=== PATIENT | male | born 1965 | race Caucasian/White ===

== ENCOUNTER 2016-08-31 06:08 | Day surgery (SDC) | payer OTHER ==
[~2016-08-31] VITALS: Ht 188 cm; Wt 88.1 kg
[~2016-08-31 06:08] MED LIST: ASPIRIN325 MG PO; ATORVASTATIN CA40 MG PO; CYCLOBENZAPRINE5 MG PO; MYLICON EQUIVAL80 MG PO; WARFARIN SODIUM5 MG PO
--- NOTE | 2016-08-31 08:05 | Provider's Discharge Care Plan ---
Problem, Goal, Plan Problem List 1. S/P colonoscopy with polypectomy Goals: Screening, Therapeutic intervention Instructions: Follow up as needed, Take meds as directed
--- NOTE | 2016-08-31 08:05 | Provider's Discharge Care Plan ---
Problem, Goal, Plan Problem List 1. S/P colonoscopy with polypectomy Goals: Screening, Therapeutic intervention Instructions: Follow up as needed, Take meds as directed
--- NOTE | 2016-08-31 08:51 | OPERATIVE REPORT ---
DATE OF SURGERY: 08/31/2016 SURGEON: Kyra Carbone III, MD MANAGER DRUG SAFETY: None. PREOPERATIVE DIAGNOSIS: 1. Bright red blood per rectum POSTOPERATIVE DIAGNOSIS: 1. Sigmoid polyp PROCEDURE PERFORMED: 1. Colonoscopy with electrocautery snare polypectomy ANESTHESIA: TIVA. INDICATIONS: A 50-year-old male with intermittent bouts of bright red blood per rectum for a year, over the last 6 months has become more common. SURGICAL FINDINGS: Normal-appearing cecum, ascending, transverse, and descending colon. The patient was noted to have a pedunculated polyp in sigmoid. The rectal vault appeared grossly normal. SURGICAL TECHNIQUE: The patient was brought to the operating room and placed in the left lateral decubitus position, where he was administered TIVA and monitored closely by anesthesia. After proper anesthesia had taken effect, a digital rectal examination revealed no masses or stenosis. This was followed by the passage of a fiberoptic video flexible Olympus colonoscope, which, without difficulty, negotiated to the cecum. The cecum was identified by anatomical landmarks and anterior abdominal wall ballottement. On withdrawing the scope, the aforementioned findings noted. The polyp in question was removed and retrieved using electrocautery snare. The patient tolerated the procedure well. The scope was withdrawn into the rectal vault. No other pathology identified. The scope was completely withdrawn. The patient tolerated the procedure well and was transferred to the recovery room in stable condition. There were no intraoperative or anesthetic complications.
[2016-08-31 09:25] VITALS: BP 144/90
== END 2016-08-31 10:15 | disposition home or self-care (01) ==
LOC: SCU SRH 06:08 → OR SRH 06:08
PROVIDERS: Specialist
PROC: 0DBN8ZX Excision of Sigmoid Colon, Via Natural or Artificial Opening Endoscopic, Diagnostic (ICD-10-PCS; principal; 2016-08-31 07:30)
DX: D12.5 Benign neoplasm of sigmoid colon (principal); Z79.01 Long term (current) use of anticoagulants; I69.351 Hemiplegia and hemiparesis following cerebral infarction affecting right dominant side
CPT/HCPCS: 29229; 29240; 50004; 60001; 82900; 83526; 90074; 94060

== ENCOUNTER 2016-09-01 10:29 | Observation (INO) | payer OTHER ==
[~2016-09-01] VITALS: Ht 188 cm; Wt 85.7 kg
--- NOTE | 2016-09-01 13:28 | ED NURSING NOTES ---
Clinical Report - Nurses [facility] [place] [address] 09/01/2016 10:30 Patient: LUIS CRESPO TRIAGE Triage time 10:37 Sep 01 2016. Acuity: LEVEL 2. Chief Complaint: RECTAL BLEEDING (pt had colonoscopy yesterday with a polyp removed by Dr Carbone. pt reports rectal bleeding prior to leaving hospital, since that time pt reports "explosive, gaseous and bright red stool"). Alert. ( pt denies pain however reports "kind of bloaty" 11/14). --10:52 Kendal Hahn R.N. 10:37 09/01/16. BP: 122/87. HR: 119. RR: 21. O2 saturation: 100%. Temp: 97.8 F. Pain level now 11/14. --10:52 Kendal Hahn R.N. ( pts level of acuity during triage inc to 2). --11:15 Kendal Hahn R.N. Weight: 88.4 kg stated. Height/Length: 74 inches Per Patient. BMI: 25. --11:01 Kendal Hahn R.N. Medications Aspirin Oral (Tablet 325 mg) 1 tablet, at night. --10:43 Kendal Hahn R.N. Coumadin Oral (Tablet 5 mg) 1 tablet, daily (last dose 08/29/2016 held for procedure). --10:43 Kendal Hahn R.N. Lipitor Oral (Tablet 80 mg) 1 tablet, daily. --10:44 Kendal Hahn R.N. Simethicone Oral. --10:44 Kendal Hahn R.N. Cyclobenzaprine HCl Oral (Tablet 10 mg) 1/2 tablet, as needed. --10:45 Kendal Hahn R.N. Probiotic Oral. --10:46 Page-Kuchan, Karyol, R.N. Allergies None. --10:42 PageKendal Pollock R.N. History Arrived by private vehicle. Historian: patient. ( pt sob, reports tenderness diffuse with inc pain to right upper quad, pt has been having minimal rectal bleeding "off and on for a while"). He has had nausea and abdominal pain. He has had diarrhea. It has been blood-tinged and has been associated with cramps. PAST MEDICAL HX: Immunizations: up-to-date. SOCIAL HX: Never smoker. Alcohol use; consumes five liquor daily. Last drink was 24 to 48 hours ago. History of heavy drug use: marijuana. ABUSE ASSESSMENT: No report of abuse. SELF HARM ASSESSMENT: A self harm assessment was performed. The patient answered "no" to the question "Have you recently felt down, depressed, or hopeless?", "Have you noticed less interest or pleasure in doing things?", "Do you have thoughts of harming or killing yourself?", "Are you here because you tried to hurt yourself?", "Have you ever tried to hurt yourself before today?", "Have you recently had thoughts about harming or killing others?" and "Do you have any dangerous items in your possession?". FALL RISK ASSESSMENT: Fall risk assessment completed. No fall risk identified. FUNCTIONAL ASSESSMENT: Functional assessment: no impairments noted. LEARNING NEEDS ASSESSMENT: The learning needs assessment revealed no barriers. SKIN INTEGRITY ASSESSMENT: Skin integrity risk assessment completed. No skin integrity risk identified. --10:52 Page-Kendal Viera R.N. PROBLEMS: Hepatitis. Atrial Septal Defect. Hyperlipidemia. CVA - Cerebrovascular Accident. --10:49 Page-Kendal Viera R.N. ADDITIONAL SURGERIES: Facial surger. --10:49 PageKendal Pollock R.N. Interventions ID and allergy band on patient. To treatment room. --10:52 PageKendal Pollock R.N. PHYSICAL ASSESSMENT ( oxygen placed on pt, pt while transferring to [facility] was tachypneic, rate in low 30's, while laying with oxygen rate drops to low 20's, with longer sentences being provided for history). GENERAL / NEURO / PSYCH: Alert. Oriented X 4. He is awake and alert and appears ill, uncomfortable and in pain. He is pale and dehydrated and is oriented and cooperative. He has good eye contact and an unsteady gait, appears cheerful, has had a recent weight gain and appearance is consistent with stated age. He is well dressed. HEENT: Mucous membranes are dry and pale. RESPIRATORY: Mild respiratory distress (while undressing and transferring to [facility]). CVS: Cardiac rhythm: (SR 96 at rest, 110's with exertion). Capillary refill is greater than 2 seconds. GI / : The patient has had nausea. He has diarrhea (pt requires wearing attends - describes as "red, I don't think i have pooped it seems just blood"). This has occurred numerous times. It has been bloody and has been associated with cramps. Abdominal tenderness. Abnormal bowel sounds present in all quadrants (hypoactive, describes as ""very regular and some clots in it"). Blood present in the stool. SKIN: Skin is pale. Skin is cool. Poor skin turgor. --11:00 Kendal Hahn R.N. ( pt reports he may feel the need to have a bm, bsc placed in pts room, pt asked to use call light when he is ready to get up). GENERAL / NEURO / PSYCH: Alert. Oriented X 4. Appears in no acute distress. RESPIRATORY: Respirations not labored. CVS: Cardiac rhythm: (SR). SKIN: Skin is dry. --12:37 Kendal Hahn R.N. NURSING PROGRESS NOTES 10:58 09/01/2016 Site #1 started via IV in the right antecubital space with an 20g angiocath; one attempt. Blood drawn: rainbow set. Labeled in the presence of the patient and sent to the lab. Saline lock flushed with 10 mL saline. --11:04 Kendal Hahn R.N. Cardiac rhythm: (SR 90's at rest). Oxygen administered by nasal cannula at 2 liters. lunchroom monitor, pulse oximeter and NIBP monitor placed on patient; monitor alarms on. Blood samples drawn. Bedside hemoglobin and hematocrit: ordered; performed by nurse. Patient gowned. SKIN: Skin is pale. Skin is dry. Skin is markedly cool. Two patient identifiers checked. Call light placed in reach of patient. Side rails up x 2. Bed placed in lowest position. Brakes of bed on. Patient ready for evaluation- chart flagged. Patient waiting for evaluation and lab results. ( pt tearful, "i'm scared" pt provided reassurance that he is in good hands and we will take excellent care of him.). --11:06 Kendal Hahn R.N. 10:58 09/01/2016 Site #2 started via IV in the left wrist with an 20g angiocath; one attempt. Blood drawn. Labeled in the presence of the patient and sent to the lab. Saline lock flushed with 10 mL saline. --11:08 Kendal Hahn R.N. 11:02 09/01/2016 Started bag #1 1000 mL IV Fluids IV NS (Saline); at 1000 mL/hr via site #1. Allergies verified and confirmed 5 rights. IV patency established. IV site checked: no pain, redness, or swelling. IV flushed thoroughly pre- and post-medication administration. --11:07 Kendal Hahn R.N. 11:24 09/01/16. EKG time: (11:22). EKG was performed by a tech and shown to the ED physician. --11:24 Savana Franco 11:43 09/01/16. BP: 121/88. HR: 90. RR: 19. O2 saturation: 100% on nasal cannula at 2 liters/minute. --11:44 Kendal Hahn R.N. 11:43 09/01/2016 IV Fluids IV NS Response: no adverse reaction symptoms have improved the patient feels better. --11:53 Kendal Hahn R.N. 13:02 09/01/16. ED physician notified about patient's status. Notified about symptom (13:06 Sep 01 2016). ( pt assisted back to [facility] after up to bsc, pt in [facility] found some red clots and bloody soaked paper, pt reports "it's actually quite a bit less than it has been" pt became cool, clammy/diaphoretic, HR up to 134/ST, RR inc to upper 20's. notified with VO for 2nd liter of NS.). --13:19 Kendal Hahn R.N. <<STRICKEN ENTRY-- 13:15 09/01/2016 Started bag #1 1000 mL IV Fluids IV NS (Saline); at 750 mL/hr via site #2. Allergies verified and confirmed 5 rights. IV patency established. IV site checked: no pain, redness, or swelling. IV flushed thoroughly pre- and post-medication administration. --13:15 Kendal Hahn R.N. --END STRIKE>> Correction. bag #2 --13:19 Kendal Hahn R.N. 13:15 09/01/2016 Started bag #2 1000 IV Fluids IV NS (Saline); at 750 mL/hr via site #2. Allergies verified and confirmed 5 rights. IV patency established. IV site checked: no pain, redness, or swelling. IV flushed thoroughly pre- and post-medication administration. --13:19 Kendal Hahn R.N. Patient waiting for admit bed. ( pt aware he is an admit to hospital. HOB lowered and warm blankets provided for comfort. pt notified s/o he is being admitted. no c/o voiced, belongings bagged/tagged for admission.). --13:47 Kendal Hahn R.N. Reassurance given to the patient. Reassessment after fluids administered. He reports no complaints, he is calm and resting quietly and he has had no adverse reaction. Overall patient status is the same- he states feels better. Call light placed in reach. Side rails up x 2. Bed placed in lowest position. Brakes of bed on. --13:49 Kendal Hahn R.N. Oxygen administered by nasal cannula at 2 liters (remains in place). Monitoring of patient in place. Reassessment after fluids administered. He reports no complaints, he is calm and resting quietly and he has had no adverse reaction. Overall patient status (pt overall reports improvement in symptoms as long as he is laying down. with movement pt becomes symptomatic of sob, diaphoresis, inc HR). Call light placed in reach. Side rails up x 2. Bed placed in lowest position. Brakes of bed on. Patient waiting for admit bed. ( waiting assigned room for admission- pt aware, pt in poc, denies pain, "as long as I'm still I feel pretty good" pt in SR on monitor, O2 remains in place at 2 L NC. ivf complete ,). --14:44 Kendal Hahn R.N. 11:53 09/01/2016 IV Fluids IV NS Discontinued: infused. Total amount infused: 1000 mL. IV patency established. IV site checked: no pain, redness, or swelling. IV flushed thoroughly. --16:07 Kendal Hahn R.N. 13:54 09/01/2016 IV Fluids IV NS Discontinued: bag #2 infused. Total amount infused: 1000 mL. IV patency established. IV site checked: no pain, redness, or swelling. IV flushed thoroughly. --16:08 Kendal Hahn R.N. DISPOSITION / DISCHARGE Cardiac rhythm: (SR). Condition at departure: improved and stable. The goals identified in the patient's plan of care were met. The patient was discharged by the physician. Admitted to Acute Care (15:45 Sep 01 2016). Transported via stretcher by [employer]. Report was given to a nurse via a phone call. Report included patient's care, treatment, medications, reviewed medication reconcilliation, and condition (including any recent changes or anticipated changes). All questions were answered. Care was transferred. (report called to Awa GUADALUPE). Bed obtained and ready (1440 Sep 01 2016). Patient's personal items include: shirt, pants, coat, socks, shoes and cell phone; items were placed in belongings bag, given to the patient and transported with the patient. --15:51 Kendal Hahn R.N. 15:45 09/01/16. BP: 106/78. HR: 85. RR: 17. O2 saturation: 100%. Temp: 98.1 F. Pain level now: 0/10. --15:51 Kendal Hahn R.N. ( pt to 211 with transport). --16:05 Kendal Hahn R.N. Locked/Released at 09/01/2016 16:09 by Kendal Hahn R.N.
--- NOTE | 2016-09-01 13:28 | ED CLINICAL REPORT ---
Clinical Report - Physicians/Mid Levels [facility] [address] [place] [address] 09/01/2016 10:30 Patient: LUIS CRESPO Time Seen: 10:47; initial patient contact. Arrived- By private vehicle. Historian- patient. HISTORY OF PRESENT ILLNESS Chief Complaint: RECTAL BLEEDING. Since colonoscopy yesterday. This started yesterday, has been moderate and is still present. The patient has had rectal bleeding and mild, intermittent abdominal pain but not had rectal pain or hard stools. No constipation, nausea, vomiting or diarrhea. Similar symptoms previously: None. Recent medical care: The patient was seen recently in a clinic. ( for colonoscopy yesterday). REVIEW OF SYSTEMS The patient has had weakness, and he has had dizziness. No fainting episodes, fever, difficulty breathing or chest pain. All systems otherwise negative, except as recorded above. PAST HISTORY Hepatitis. Atrial Septal Defect. Hyperlipidemia. CVA - Cerebrovascular Accident. ADDITIONAL SURGERIES: Facial surger. SOCIAL HISTORY Never smoker. Regular alcohol use. History of drug use: marijuana. ADDITIONAL NOTES The nursing notes have been reviewed. PHYSICAL EXAM Vital Signs: 09/01/2016 10:37 BP: 122/87. HR: 119. RR: 21. O2 saturation: 100%. Temp: 97.8 F. Have been reviewed. Blood pressure normal. Tachycardic. Respiratory rate normal. Temperature normal. Oxygen saturation normal. Appearance: Alert. Oriented X3. No acute distress. Eyes: Eyes normal inspection. No pale conjunctivae. ENT: Pharynx normal. CVS: Tachycardia. Heart sounds normal. Rhythm normal. Respiratory: No respiratory distress. Breath sounds normal. Abdomen: Soft and nontender. Bowel sounds normal. No mass. Rectal: Strongly heme-positive stool; blood streaks present in the stool; hemoccult ethanol quality leader check passed. (POC test reference range: negative). Brown, bloody stool. No hemorrhoids. No digital exam tenderness. Skin: Normal skin color. No rash. Extremities: No lower extremity edema. Neuro: Oriented X 3. LABS, X-RAYS, AND EKG EKG: EKG time: (1122). No acute process. No acute ischemia. Normal sinus rhythm. Rate: 79. Normal P waves. Normal HOLLI. Normal QRS complex. Normal axis. Normal ST and T waves, QT and QTc. Prior EKG unavailable. The study has been interpreted contemporaneously by me. The study has been independently viewed by me. The EKG appears to be a good tracing. I do not agree with or confirm the computer reading of the EKG. Interpretation time: 1124. Laboratory Tests: CBC w Diff: (KENDAL: 09/01/2016 10:40) ( [facility] [place] 09/01/2016 11:35) Final results Test Result Flag Units (Reference) WHITE BLOOD COUNT 8.9 K/uL (4.5-11.5) RED BLOOD COUNT 4.12 L M/uL (4.50-5.90) HEMOGLOBIN 13.2 L gm/dL (13.5-17.5) HEMATOCRIT 39.7 L % (41.0-53.0) MEAN CELL VOLUME 96 fL (80-100) MEAN CORPUSCULAR HGB 32 pg (26-34) MEAN CORPUSCULAR HGB CONC 33 g/dL (31-37) RED CELL DISTRIBUTION WIDTH 14.2 % (11.6-14.8) PLATELET COUNT 305 K/uL (150-400) NEUTROPHIL % 78.9 H % (50-75) LYMPH % 15.8 L % (25-40) MONO % 4.5 % (3-14) EOSINOPHIL % 0.5 % (0-4) BASOPHIL % 0.3 % (0-2) PT with INR: (KENDAL: 09/01/2016 10:40) ( [facility] [place] 09/01/2016 11:35) Final results Test Result Flag Units (Reference) INR 1.2 (0.8-1.2) Low Intensity Therapy: INR 1.5-2.0 PT range 18.5-23.1Mod.Intensity Therapy: INR 2.0-3.0 PT range 23.1-31.5High Intensity Therapy: INR 2.5-3.5 PT range 27.4-35.5High Intensity Therapy 2: INR 3.0-4.0 PT range 31.5-39.3 APTT 32 SECONDS (24-34) CPK: (KENDAL: 09/01/2016 10:40) ( [facility] [place] 09/01/2016 12:55) Final results Test Result Flag Units (Reference) CPK 79 U/L (24-260) TROPONIN I <0.05 ng/mL (0.00-1.5) TROPONIN REFERENCE RANGE:<0.1 NEGATIVE0.1-1.5 INDETERMINANT>1.5 POSITIVE CMP: (KENDAL: 09/01/2016 10:40) ( [facility] [place] 09/01/2016 11:36) Final results Test Result Flag Units (Reference) GLUCOSE 201 H mg/dL (70-110) BUN 7 mg/dL (7-18) CREATININE 0.9 mg/dL (0.6-1.3) Estimated GFR >60 mL/min Estimated GFR- >60 mL/min Note: Persistent reduction over 3 months in eGFR<60 mL/min/1.73 m2 defines CKD. Patients with eGFR values>=60 mL/min/1.73 m2 may also have CKD if evidence ofpersistent proteinuria. Additional information may be foundat www.kidney.org. SODIUM 139 mmol/L (136-145) POTASSIUM 3.8 mmol/L (3.5-5.1) CHLORIDE 103 mmol/L (98-107) CARBON DIOXIDE 20 L mmol/L (21-32) CALCIUM 8.5 mg/dL (8.5-10.1) TOTAL PROTEIN 7.2 g/dL (6.4-8.2) ALBUMIN 4.3 g/dL (3.3-5.0) BILIRUBIN, TOTAL 1.2 H mg/dL (0.0-1.0) ALKALINE PHOSPHATASE 57 U/L (46-116) AST (SGOT) 45 H U/L (15-37) ALT (SGPT) 61 U/L (12-78) Type & Screen: (KENDAL: 09/01/2016 10:40) ( [facility] [place] 09/01/2016 12:31) Final results Test Result Flag Units (Reference) PATIENT BLOOD TYPE O Positive ANTIBODY SCREEN NEGATIVE . PROGRESS AND PROCEDURES Discussed case with patient's primary care provider, (call returned 13:23 Dr. Carbone. Admit to hospitalist for observation, if he bleeds again will perform colonoscopy). Discussed case with hospitalist, (call returned 13:25 Dr. Terrell will admit). Health care provider will see patient in hospital. Disposition: Observation in Acute Care. Condition: good. CLINICAL IMPRESSION Minor GI bleed with hematochezia. INSTRUCTIONS Follow-up: Screening today revealed the patient's blood pressure to be in the pre-hypertensive range. The patient was admitted and blood pressure will be managed during the admission. (Electronically signed by Carlos Silva Dr. 09/01/2016 13:46)
--- NOTE | 2016-09-01 13:28 | ED CLINICAL REPORT ---
Clinical Report - Physicians/Mid Levels [facility] [address] [place] [address] 09/01/2016 10:30 Patient: LUIS CRESPO Time Seen: 10:47; initial patient contact. Arrived- By private vehicle. Historian- patient. HISTORY OF PRESENT ILLNESS Chief Complaint: RECTAL BLEEDING. Since colonoscopy yesterday. This started yesterday, has been moderate and is still present. The patient has had rectal bleeding and mild, intermittent abdominal pain but not had rectal pain or hard stools. No constipation, nausea, vomiting or diarrhea. Similar symptoms previously: None. Recent medical care: The patient was seen recently in a clinic. ( for colonoscopy yesterday). REVIEW OF SYSTEMS The patient has had weakness, and he has had dizziness. No fainting episodes, fever, difficulty breathing or chest pain. All systems otherwise negative, except as recorded above. PAST HISTORY Hepatitis. Atrial Septal Defect. Hyperlipidemia. CVA - Cerebrovascular Accident. ADDITIONAL SURGERIES: Facial surger. SOCIAL HISTORY Never smoker. Regular alcohol use. History of drug use: marijuana. ADDITIONAL NOTES The nursing notes have been reviewed. PHYSICAL EXAM Vital Signs: 09/01/2016 10:37 BP: 122/87. HR: 119. RR: 21. O2 saturation: 100%. Temp: 97.8 F. Have been reviewed. Blood pressure normal. Tachycardic. Respiratory rate normal. Temperature normal. Oxygen saturation normal. Appearance: Alert. Oriented X3. No acute distress. Eyes: Eyes normal inspection. No pale conjunctivae. ENT: Pharynx normal. CVS: Tachycardia. Heart sounds normal. Rhythm normal. Respiratory: No respiratory distress. Breath sounds normal. Abdomen: Soft and nontender. Bowel sounds normal. No mass. Rectal: Strongly heme-positive stool; blood streaks present in the stool; hemoccult vice president quality check passed. (POC test reference range: negative). Brown, bloody stool. No hemorrhoids. No digital exam tenderness. Skin: Normal skin color. No rash. Extremities: No lower extremity edema. Neuro: Oriented X 3. LABS, X-RAYS, AND EKG EKG: EKG time: (1122). No acute process. No acute ischemia. Normal sinus rhythm. Rate: 79. Normal P waves. Normal HOLLI. Normal QRS complex. Normal axis. Normal ST and T waves, QT and QTc. Prior EKG unavailable. The study has been interpreted contemporaneously by me. The study has been independently viewed by me. The EKG appears to be a good tracing. I do not agree with or confirm the computer reading of the EKG. Interpretation time: 1124. Laboratory Tests: CBC w Diff: (KENDAL: 09/01/2016 10:40) ( [facility] [place]/01[facility] 11:35) Final results Test Result Flag Units (Reference) WHITE BLOOD COUNT 8.9 K/uL (4.5-11.5) RED BLOOD COUNT 4.12 L M/uL (4.50-5.90) HEMOGLOBIN 13.2 L gm/dL (13.5-17.5) HEMATOCRIT 39.7 L % (41.0-53.0) MEAN CELL VOLUME 96 fL (80-100) MEAN CORPUSCULAR HGB 32 pg (26-34) MEAN CORPUSCULAR HGB CONC 33 g/dL (31-37) RED CELL DISTRIBUTION WIDTH 14.2 % (11.6-14.8) PLATELET COUNT 305 K/uL (150-400) NEUTROPHIL % 78.9 H % (50-75) LYMPH % 15.8 L % (25-40) MONO % 4.5 % (3-14) EOSINOPHIL % 0.5 % (0-4) BASOPHIL % 0.3 % (0-2) PT with INR: (KENDAL: 09/01/2016 10:40) ( [facility] [place] 11:35) Final results Test Result Flag Units (Reference) INR 1.2 (0.8-1.2) Low Intensity Therapy: INR 1.5-2.0 PT range 18.5-23.1Mod.Intensity Therapy: INR 2.0-3.0 PT range 23.1-31.5High Intensity Therapy: INR 2.5-3.5 PT range 27.4-35.5High Intensity Therapy 2: INR 3.0-4.0 PT range 31.5-39.3 APTT 32 SECONDS (24-34) CPK: (KENDAL: 09/01/2016 10:40) ( [facility] [place] 09/01/2016 12:55) Final results Test Result Flag Units (Reference) CPK 79 U/L (24-260) TROPONIN I <0.05 ng/mL (0.00-1.5) TROPONIN REFERENCE RANGE:<0.1 NEGATIVE0.1-1.5 INDETERMINANT>1.5 POSITIVE CMP: (KENDAL: 09/01/2016 10:40) ( [facility] [place] 09/01[facility]2016 11:36) Final results Test Result Flag Units (Reference) GLUCOSE 201 H mg/dL (70-110) BUN 7 mg/dL (7-18) CREATININE 0.9 mg/dL (0.6-1.3) Estimated GFR >60 mL/min Estimated GFR- >60 mL/min Note: Persistent reduction over 3 months in eGFR<60 mL/min/1.73 m2 defines CKD. Patients with eGFR values>=60 mL/min/1.73 m2 may also have CKD if evidence ofpersistent proteinuria. Additional information may be foundat www.kidney.org. SODIUM 139 mmol/L (136-145) POTASSIUM 3.8 mmol/L (3.5-5.1) CHLORIDE 103 mmol/L (98-107) CARBON DIOXIDE 20 L mmol/L (21-32) CALCIUM 8.5 mg/dL (8.5-10.1) TOTAL PROTEIN 7.2 g/dL (6.4-8.2) ALBUMIN 4.3 g/dL (3.3-5.0) BILIRUBIN, TOTAL 1.2 H mg/dL (0.0-1.0) ALKALINE PHOSPHATASE 57 U/L (46-116) AST (SGOT) 45 H U/L (15-37) ALT (SGPT) 61 U/L (12-78) Type & Screen: (KENDAL: 09/01/2016 10:40) ( [facility] [place]01[facility] 12:31) Final results Test Result Flag Units (Reference) PATIENT BLOOD TYPE O Positive ANTIBODY SCREEN NEGATIVE . PROGRESS AND PROCEDURES Discussed case with patient's primary care provider, (call returned 13:23 Dr. Carbone. Admit to hospitalist for observation, if he bleeds again will perform colonoscopy). Discussed case with hospitalist, (call returned 13:25 Dr. Terrell will admit). Health care provider will see patient in hospital. Disposition: Observation in Acute Care. Condition: good. CLINICAL IMPRESSION Minor GI bleed with hematochezia. INSTRUCTIONS Follow-up: Screening today revealed the patient's blood pressure to be in the pre-hypertensive range. The patient was admitted and blood pressure will be managed during the admission. (Electronically signed by Carlos Silva Dr. 09/01/2016 13:46)
--- NOTE | 2016-09-01 13:28 | ED NURSING NOTES ---
Clinical Report - Nurses [facility] [place] [address] 09/01/2016 10:30 Patient: LUIS CRESPO TRIAGE Triage time 10:37 Sep 01 2016. Acuity: LEVEL 2. Chief Complaint: RECTAL BLEEDING (pt had colonoscopy yesterday with a polyp removed by Dr Carbone. pt reports rectal bleeding prior to leaving hospital, since that time pt reports "explosive, gaseous and bright red stool"). Alert. ( pt denies pain however reports "kind of bloaty" 11/14). --10:52 Kendal Hahn R.N. 10:37 09/01/16. BP: 122/87. HR: 119. RR: 21. O2 saturation: 100%. Temp: 97.8 F. Pain level now 11/14. --10:52 Kendal Hahn R.N. ( pts level of acuity during triage inc to 2). --11:15 Kendal Hahn R.N. Weight: 88.4 kg stated. Height/Length: 74 inches Per Patient. BMI: 25. --11:01 Kendal Hahn R.N. Medications Aspirin Oral (Tablet 325 mg) 1 tablet, at night. --10:43 Kendal Hahn R.N. Coumadin Oral (Tablet 5 mg) 1 tablet, daily (last dose 08/29/2016 held for procedure). --10:43 Kendal Hahn R.N. Lipitor Oral (Tablet 80 mg) 1 tablet, daily. --10:44 Kendal Hahn R.N. Simethicone Oral. --10:44 Kendal Hahn R.N. Cyclobenzaprine HCl Oral (Tablet 10 mg) 1/2 tablet, as needed. --10:45 Kendal Hahn R.N. Probiotic Oral. --10:46 Page-Kuchan, Karyol, R.N. Allergies None. --10:42 PageKendal Pollock R.N. History Arrived by private vehicle. Historian: patient. ( pt sob, reports tenderness diffuse with inc pain to right upper quad, pt has been having minimal rectal bleeding "off and on for a while"). He has had nausea and abdominal pain. He has had diarrhea. It has been blood-tinged and has been associated with cramps. PAST MEDICAL HX: Immunizations: up-to-date. SOCIAL HX: Never smoker. Alcohol use; consumes five liquor daily. Last drink was 24 to 48 hours ago. History of heavy drug use: marijuana. ABUSE ASSESSMENT: No report of abuse. SELF HARM ASSESSMENT: A self harm assessment was performed. The patient answered "no" to the question "Have you recently felt down, depressed, or hopeless?", "Have you noticed less interest or pleasure in doing things?", "Do you have thoughts of harming or killing yourself?", "Are you here because you tried to hurt yourself?", "Have you ever tried to hurt yourself before today?", "Have you recently had thoughts about harming or killing others?" and "Do you have any dangerous items in your possession?". FALL RISK ASSESSMENT: Fall risk assessment completed. No fall risk identified. FUNCTIONAL ASSESSMENT: Functional assessment: no impairments noted. LEARNING NEEDS ASSESSMENT: The learning needs assessment revealed no barriers. SKIN INTEGRITY ASSESSMENT: Skin integrity risk assessment completed. No skin integrity risk identified. --10:52 Page-Kendal Viera R.N. PROBLEMS: Hepatitis. Atrial Septal Defect. Hyperlipidemia. CVA - Cerebrovascular Accident. --10:49 Page-Kendal Viera R.N. ADDITIONAL SURGERIES: Facial surger. --10:49 PageKendal Pollock R.N. Interventions ID and allergy band on patient. To treatment room. --10:52 PageKendal Pollock R.N. PHYSICAL ASSESSMENT ( oxygen placed on pt, pt while transferring to [facility] was tachypneic, rate in low 30's, while laying with oxygen rate drops to low 20's, with longer sentences being provided for history). GENERAL / NEURO / PSYCH: Alert. Oriented X 4. He is awake and alert and appears ill, uncomfortable and in pain. He is pale and dehydrated and is oriented and cooperative. He has good eye contact and an unsteady gait, appears cheerful, has had a recent weight gain and appearance is consistent with stated age. He is well dressed. HEENT: Mucous membranes are dry and pale. RESPIRATORY: Mild respiratory distress (while undressing and transferring to [facility]). CVS: Cardiac rhythm: (SR 96 at rest, 110's with exertion). Capillary refill is greater than 2 seconds. GI / : The patient has had nausea. He has diarrhea (pt requires wearing attends - describes as "red, I don't think i have pooped it seems just blood"). This has occurred numerous times. It has been bloody and has been associated with cramps. Abdominal tenderness. Abnormal bowel sounds present in all quadrants (hypoactive, describes as ""very regular and some clots in it"). Blood present in the stool. SKIN: Skin is pale. Skin is cool. Poor skin turgor. --11:00 Kendal Hahn R.N. ( pt reports he may feel the need to have a bm, bsc placed in pts room, pt asked to use call light when he is ready to get up). GENERAL / NEURO / PSYCH: Alert. Oriented X 4. Appears in no acute distress. RESPIRATORY: Respirations not labored. CVS: Cardiac rhythm: (SR). SKIN: Skin is dry. --12:37 Kendal Hahn R.N. NURSING PROGRESS NOTES 10:58 09/01/2016 Site #1 started via IV in the right antecubital space with an 20g angiocath; one attempt. Blood drawn: rainbow set. Labeled in the presence of the patient and sent to the lab. Saline lock flushed with 10 mL saline. --11:04 Kendal Hahn R.N. Cardiac rhythm: (SR 90's at rest). Oxygen administered by nasal cannula at 2 liters. vehicle monitor technician, pulse oximeter and NIBP monitor placed on patient; monitor alarms on. Blood samples drawn. Bedside hemoglobin and hematocrit: ordered; performed by nurse. Patient gowned. SKIN: Skin is pale. Skin is dry. Skin is markedly cool. Two patient identifiers checked. Call light placed in reach of patient. Side rails up x 2. Bed placed in lowest position. Brakes of bed on. Patient ready for evaluation- chart flagged. Patient waiting for evaluation and lab results. ( pt tearful, "i'm scared" pt provided reassurance that he is in good hands and we will take excellent care of him.). --11:06 Kendal Hahn R.N. 10:58 09/01/2016 Site #2 started via IV in the left wrist with an 20g angiocath; one attempt. Blood drawn. Labeled in the presence of the patient and sent to the lab. Saline lock flushed with 10 mL saline. --11:08 Kendal Hahn R.N. 11:02 09/01/2016 Started bag #1 1000 mL IV Fluids IV NS (Saline); at 1000 mL/hr via site #1. Allergies verified and confirmed 5 rights. IV patency established. IV site checked: no pain, redness, or swelling. IV flushed thoroughly pre- and post-medication administration. --11:07 Kendal Hahn R.N. 11:24 09/01/16. EKG time: (11:22). EKG was performed by a tech and shown to the ED physician. --11:24 Savana Franco 11:43 09/01/16. BP: 121/88. HR: 90. RR: 19. O2 saturation: 100% on nasal cannula at 2 liters/minute. --11:44 Kendal Hahn R.N. 11:43 09/01/2016 IV Fluids IV NS Response: no adverse reaction symptoms have improved the patient feels better. --11:53 Kendal Hahn R.N. 13:02 09/01/16. ED physician notified about patient's status. Notified about symptom (13:06 Sep 01 2016). ( pt assisted back to [facility] after up to bsc, pt in [facility] found some red clots and bloody soaked paper, pt reports "it's actually quite a bit less than it has been" pt became cool, clammy/diaphoretic, HR up to 134/ST, RR inc to upper 20's. notified with VO for 2nd liter of NS.). --13:19 Kendal Hahn R.N. <<STRICKEN ENTRY-- 13:15 09/01/2016 Started bag #1 1000 mL IV Fluids IV NS (Saline); at 750 mL/hr via site #2. Allergies verified and confirmed 5 rights. IV patency established. IV site checked: no pain, redness, or swelling. IV flushed thoroughly pre- and post-medication administration. --13:15 Kendal Hahn R.N. --END STRIKE>> Correction. bag #2 --13:19 Kendal Hahn R.N. 13:15 09/01/2016 Started bag #2 1000 IV Fluids IV NS (Saline); at 750 mL/hr via site #2. Allergies verified and confirmed 5 rights. IV patency established. IV site checked: no pain, redness, or swelling. IV flushed thoroughly pre- and post-medication administration. --13:19 Kendal Hahn R.N. Patient waiting for admit bed. ( pt aware he is an admit to hospital. HOB lowered and warm blankets provided for comfort. pt notified s/o he is being admitted. no c/o voiced, belongings bagged/tagged for admission.). --13:47 Kendal Hahn R.N. Reassurance given to the patient. Reassessment after fluids administered. He reports no complaints, he is calm and resting quietly and he has had no adverse reaction. Overall patient status is the same- he states feels better. Call light placed in reach. Side rails up x 2. Bed placed in lowest position. Brakes of bed on. --13:49 Kendal Hahn R.N. Oxygen administered by nasal cannula at 2 liters (remains in place). Monitoring of patient in place. Reassessment after fluids administered. He reports no complaints, he is calm and resting quietly and he has had no adverse reaction. Overall patient status (pt overall reports improvement in symptoms as long as he is laying down. with movement pt becomes symptomatic of sob, diaphoresis, inc HR). Call light placed in reach. Side rails up x 2. Bed placed in lowest position. Brakes of bed on. Patient waiting for admit bed. ( waiting assigned room for admission- pt aware, pt in poc, denies pain, "as long as I'm still I feel pretty good" pt in SR on monitor, O2 remains in place at 2 L NC. ivf complete ,). --14:44 Kendal Hahn R.N. 11:53 09/01/2016 IV Fluids IV NS Discontinued: infused. Total amount infused: 1000 mL. IV patency established. IV site checked: no pain, redness, or swelling. IV flushed thoroughly. --16:07 Kendal Hahn R.N. 13:54 09/01/2016 IV Fluids IV NS Discontinued: bag #2 infused. Total amount infused: 1000 mL. IV patency established. IV site checked: no pain, redness, or swelling. IV flushed thoroughly. --16:08 Kendal Hahn R.N. DISPOSITION / DISCHARGE Cardiac rhythm: (SR). Condition at departure: improved and stable. The goals identified in the patient's plan of care were met. The patient was discharged by the physician. Admitted to Acute Care (15:45 Sep 01 2016). Transported via stretcher by [employer]. Report was given to a nurse via a phone call. Report included patient's care, treatment, medications, reviewed medication reconcilliation, and condition (including any recent changes or anticipated changes). All questions were answered. Care was transferred. (report called to Awa GUADALUPE). Bed obtained and ready (1440 Sep 01 2016). Patient's personal items include: shirt, pants, coat, socks, shoes and cell phone; items were placed in belongings bag, given to the patient and transported with the patient. --15:51 Kendal Hahn R.N. 15:45 09/01/16. BP: 106/78. HR: 85. RR: 17. O2 saturation: 100%. Temp: 98.1 F. Pain level now: 0/10. --15:51 Kendal Hahn R.N. ( pt to 211 with transport). --16:05 Kendal Hahn R.N. Locked/Released at 09/01/2016 16:09 by Kendal Hahn R.N.
--- NOTE | 2016-09-01 13:28 | ED ORDER SUMMARY ---
..... Patient: LUIS CRESPO OrderSheet [facility] VisitID: [id number] [place] [address] 50y, M Registration Date/Time: 09/01/2016 ORDER SHEET Weight: 88.4 kg (stated) Allergies: None GENERAL ORDERS: CBC w Diff Urgent (10:48 09/01/2016 Lane Lea) (Ack 10:49 Lynnener) (11:07 KPage-Kuchan R.N.) CMP Urgent (10:48 09/01/2016 [address] Le[place]) (Ack 10:49 LETYoelidaner) (11:07 KPage-Kuchan R.N.) PT with INR Urgent (10:48 09/01/2016 [address] Lea) (Ack 10:49 Jamin) (11:07 KPage-Kuchan R.N.) PTT Urgent (10:48 09/01/2016 [address] Lea) (Ack 10:49 LETYoelidaner) (11:07 KPage-Kuchan R.N.) Type & Screen Urgent (10:48 09/01/2016 Lane Lea) (Ack 10:49 LETYoerebel) (11:07 KPage-Kuchan R.N.) EKG - ER Stat (11:09 09/01/2016 Andrew RLennyN. verbal order read back to Lane Lea) (Ack 11:10 Jamin) (11:26 LETYoerner) CPK Urgent (11:51 09/01/2016 Lane Lea) (Ack 11:54 Jamin) (13:19 KPage-Kuchan R.N.) Troponin-I Urgent (11:51 09/01/2016 Lane Lea) (Ack 11:54 LETYoerebel) (13:19 KPage-Kuchan R.N.) MEDICATION ORDERS: IV FLUIDS: IV NS : initial bolus none -, then 1000 mL/hr for X1 (NOW) (10:47 09/01/2016 Lane Lea) (11:07 KPage-Kuchan R.N.) IV NS with Normal Saline 1 Liter: initial bolus none -, then 1000 mL/hr (NOW) (13:13 09/01/2016 Arias Cortez verbal order read back to Lane Lea) (13:15 Arias Cortez) ORDER SHEET NOTES: [Electronically signed by Carlos Silva Dr. (13:46 09/01/2016)] [Electronically signed by Kendal Hahn R.N. (16:09 09/01/2016)] [Electronically locked/signed by Kendal Hahn R.N. (16:09 09/01/2016)]
--- NOTE | 2016-09-01 13:28 | ED ORDER SUMMARY ---
..... Patient: LUIS CRESPO OrderSheet [facility] VisitID: [id number] [place] [address] 50y, M Registration Date/Time: 09/01/2016 ORDER SHEET Weight: 88.4 kg (stated) Allergies: None GENERAL ORDERS: CBC w Diff Urgent (10:48 09/01/2016 Lane Lea) (Ack 10:49 Lynnener) (11:07 KPage-Kuchan R.N.) CMP Urgent (10:48 09/01/2016 Lane Le[facility]) (Ack 10:49 LETYoelidaner) (11:07 KPage-Kuchan R.N.) PT with INR Urgent (10:48 09/01/2016 Lane Lea) (Ack 10:49 Jamin) (11:07 KPage-Kuchan R.N.) PTT Urgent (10:48 09/01/2016 Lane Lea) (Ack 10:49 LETYoelidaner) (11:07 KPage-Kuchan R.N.) Type & Screen Urgent (10:48 09/01/2016 Lane Lea) (Ack 10:49 LETYoerebel) (11:07 KPage-Kuchan R.N.) EKG - ER Stat (11:09 09/01/2016 Andrew RLennyN. verbal order read back to Lane Le[facility]) (Ack 11:10 Jamin) (11:26 LETYoerner) CPK Urgent (11:51 09/01/2016 Lane Lea) (Ack 11:54 Jamin) (13:19 KPage-Kuchan R.N.) Troponin-I Urgent (11:51 09/01/2016 Lane Lea) (Ack 11:54 LETYoerebel) (13:19 KPage-Kuchan R.N.) MEDICATION ORDERS: IV FLUIDS: IV NS : initial bolus none -, then 1000 mL/hr for X1 (NOW) (10:47 09/01/2016 Lane Lea) (11:07 KPage-Kuchan R.N.) IV NS with Normal Saline 1 Liter: initial bolus none -, then 1000 mL/hr (NOW) (13:13 09/01/2016 Arias Cortez verbal order read back to Lane Lea) (13:15 Arias Cortez) ORDER SHEET NOTES: [Electronically signed by Carlos Silva Dr. (13:46 09/01/2016)] [Electronically signed by Kendal Hahn R.N. (16:09 09/01/2016)] [Electronically locked/signed by Kendal Hahn R.N. (16:09 09/01/2016)]
--- NOTE | 2016-09-01 16:09 | ED MAR SUMMARY ---
..... Medication Administration Record [facility] [address] [place] [address] Patient: LUIS CRESPO Visit ID: [id number] 50y, M Weight: 88.4 kg Height/Length: 74 in BMI: 25 ALLERGIES: None Start 11:02 09/01/2016 Kendal Hahn R.N., Stop 11:53 09/01/2016 Kendal Hahn R.N. Medication Administered: IV NS (SALINE), Dose: IV Fluids, Rate: 1000 mL/hr, Dispensed: 1000 mL bag, Site: #1 right AC. Medication Ordered: IV NS : initial bolus none -, then 1000 mL/hr for X1 (NOW). Start 13:15 09/01/2016 Kendal Hahn R.N., Stop 13:54 09/01/2016 Kendal Hahn R.N. Medication Administered: IV NS (SALINE), Dose: IV Fluids, Rate: 750 mL/hr, Dispensed: 1000 mL bag, Site: #2 left wrist. Medication Ordered: IV NS with Normal Saline 1 Liter: initial bolus none -, then 1000 mL/hr (NOW).
--- NOTE | 2016-09-01 16:09 | ED DISCHARGE INSTRUCTIONS ---
Patient: LUIS CRESPO General Instructions [facility] VisitID: [id number] [address] [place] [address] 50y, M Registration Date/Time: 09/01/2016 Minor GI bleed with hematochezia. INSTRUCTIONS Follow-up: Screening today revealed the patient's blood pressure to be in the pre-hypertensive range. The patient was admitted and blood pressure will be managed during the admission. (Electronically signed by Carlos Silva Dr. 09/01/2016 13:46)
--- NOTE | 2016-09-01 16:09 | ED DISCHARGE INSTRUCTIONS ---
Patient: LUIS CRESPO General Instructions [facility] VisitID: [id number] [address] [place] [address] 50y, M Registration Date/Time: 09/01/2016 Minor GI bleed with hematochezia. INSTRUCTIONS Follow-up: Screening today revealed the patient's blood pressure to be in the pre-hypertensive range. The patient was admitted and blood pressure will be managed during the admission. (Electronically signed by Carlos Silva Dr. 09/01/2016 13:46)
--- NOTE | 2016-09-01 16:09 | ED MED RECONCILIATION SUMMARY ---
Patient: LUIS CRESPO Medication Reconciliation Report [facility] VisitID: [id number] [place] [address] 50y, M Registration Date/Time: 09/01/2016 Weight: 88.4 kg Height/Length: 74 in. BMI: 25.0 ALLERGIES: None The patient's Home Medications are listed below: THE FOLLOWING MEDICATIONS NEED TO BE RECONCILED: Aspirin Oral (325 mg) 1 tablet, at night Coumadin Oral (5 mg) 1 tablet, daily, last dose 08/29/2016 held for procedure Cyclobenzaprine HCl Oral (10 mg) 1/2 tablet Lipitor Oral (80 mg) 1 tablet, daily Probiotic Oral Simethicone Oral The source(s) of the original Home Medication information: Not obtained. The following Medications were given to the patient in the Emergency Department: IV NS IV Fluids bolus 0, then 1000 mL/hr, administered: 09/01/2016 11:02:00 AM IV NS IV Fluids bolus 0, then 750 mL/hr, administered: 09/01/2016 1:15:00 PM The following Medications were prescribed to the patient: None.
--- NOTE | 2016-09-01 16:09 | ED MED RECONCILIATION SUMMARY ---
Patient: LUIS CRESPO Medication Reconciliation Report [facility] VisitID: [id number] [place] [address] 50y, M Registration Date/Time: 09/01/2016 Weight: 88.4 kg Height/Length: 74 in. BMI: 25.0 ALLERGIES: None The patient's Home Medications are listed below: THE FOLLOWING MEDICATIONS NEED TO BE RECONCILED: Aspirin Oral (325 mg) 1 tablet, at night Coumadin Oral (5 mg) 1 tablet, daily, last dose 08/29/2016 held for procedure Cyclobenzaprine HCl Oral (10 mg) 1/2 tablet Lipitor Oral (80 mg) 1 tablet, daily Probiotic Oral Simethicone Oral The source(s) of the original Home Medication information: Not obtained. The following Medications were given to the patient in the Emergency Department: IV NS IV Fluids bolus 0, then 1000 mL/hr, administered: 09/01/2016 11:02:00 AM IV NS IV Fluids bolus 0, then 750 mL/hr, administered: 09/01/2016 1:15:00 PM The following Medications were prescribed to the patient: None.
--- NOTE | 2016-09-01 16:09 | ED MAR SUMMARY ---
..... Medication Administration Record [facility] [address] [place] [address] Patient: LUIS CRESPO Visit ID: [id number] 50y, M Weight: 88.4 kg Height/Length: 74 in BMI: 25 ALLERGIES: None Start 11:02 09/01/2016 Kendal Hahn R.N., Stop 11:53 09/01/2016 Kendal Hahn R.N. Medication Administered: IV NS (SALINE), Dose: IV Fluids, Rate: 1000 mL/hr, Dispensed: 1000 mL bag, Site: #1 right AC. Medication Ordered: IV NS : initial bolus none -, then 1000 mL/hr for X1 (NOW). Start 13:15 09/01/2016 Kendal Hahn R.N., Stop 13:54 09/01/2016 Kendal Hahn R.N. Medication Administered: IV NS (SALINE), Dose: IV Fluids, Rate: 750 mL/hr, Dispensed: 1000 mL bag, Site: #2 left wrist. Medication Ordered: IV NS with Normal Saline 1 Liter: initial bolus none -, then 1000 mL/hr (NOW).
[2016-09-01 16:17] VITALS: BP 126/90
--- NOTE | 2016-09-01 17:06 | NUR ---
PT TRANSPORTED TO THE FLOOR [facility] FROM ER. PT HAS DIAGNOSIS OF ANEMIA AND LOWER GI BLEED. HE REPORTED HAVING MORE THAN 5 INSTANCES IN WHICH HE PASSED BLOOD FROM HIS RECTUM SINCE COLONOSCOPY YESTERDAY. UPON ARRIVAL IN THE ER, HE HAD DIFFUSE ABDOMINAL PAIN, BUT THIS HAS RESOLVED AT TIME OF ARRIVAL TO THE FLOOR. NO BLEEDING HAS BEEN NOTED SINCE ADMISSION TO THE FLOOR. BOWEL TONES ARE PRESENT. PT DENIES CHEST PAIN, SOB AND VITAL SIGNS ARE STABLE CURRENTLY. I RECEIVED IN REPORT FROM THE ER THAT HIS HR JUMPED UP FROM 70-80'S TO 130'S WHEN HE WAS UP AND MOVING AROUND. THIS HAS NOT BEEN WITNESSED SINCE HIS ARRIVAL TO THE FLOOR.
[2016-09-01 18:25] VITALS: BP 113/82
--- NOTE | 2016-09-01 18:25 | History & Physical Report ---
Admission Admit Date Patient Name: Shahab Jewell Admission Date: 09/01/16 Primary Care Provider: Dr Barraza Attending Physician: Braulio Terrell MD Admitting Physician: Braulio Terrell MD 09/01/16 Information Source Information Source: Self Reliability: Good History Chief Complaint rectal bleeding History of Present Illness Patient is a 50 year old male with a pmh of stroke, atrial septal defect, and hepatitis B infection who is presenting with a one day history of rectal bleeding. Patient had previously been seen to have episodes of sporadic bleeding that was evident in his stool. Patient was noticed to have persistently blood streaked stool, dark stools, and fresh blood in the toilet. Patient was seen by the surgeons at [facility] who recommended that the patient have a colonoscopy. Patient had the colonscopy and patient had one polyp removed. On top of that patient was seen to have diverticula. Patient after returning home had frequent bouts of gas. Patient claimed that with each passing of gas he would have flecks of blood which then turned to spurts of blood every time the patient passed gas. Patient would then have bowel movements that were composed of primarily blood. Patient continued to have bloody bowel movements, patient estimates 10 in total. Patient became concerned that this would not remit and called the surgeon who recommended that the patient come into the hospital. Patient while in the ED only had one bowel movement which had much less blood than previously. Patient has been otherwise hemodynamically stable. Patient History 1. Anemia 2. Lower GI bleeding 3. 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 Patient attended a 2 year college. Patient does not smoke tobacco nor has he ever. Patient drinks approximately 3-6 drinks of hard liquor a day, however he has not drank for the past 4 days. Patient additionally uses marijuana occasionally Medications and Allergies Medications Current Medications Sig/Nafisa Start time Last Medication Dose Route Stop Time Status Admin Acetaminophen 650 MG Q6H PRN 09/01 1800 AC PO Sodium Chloride 1,000 ML ASDIRECTED 09/01 1745 AC 09/01 IV 1748 Allergies Coded Allergies: Cortisone (Severe, childhood..after injection, eye swelling 08/31/16) Review of Systems Constitutional Weakness. Denies: Fever, Chills, Sweats, Malaise, Other. Eyes Denies: Pain, Vision Change, Conjunctival Inflammation, Eyelid Inflammation, Redness, Other. ENT Denies: Ear Pain, Ear Discharge, Nose Pain, Nasal Discharge, Nasal Congestion, Mouth Pain, Mouth Swelling, Throat Pain, Throat Swelling, Other. Respiratory Denies: Cough, Dry, SOB w/exertion, Wheezing, Hemoptysis, Pleuritic Pain, Sputum , Other. Cardiovascular Denies: Chest Pain, Palpitations, Orthopnea, PND, Edema, Light-headedness, Other. Gastrointestinal Melena. Genitourinary Denies: Dysuria, Frequency, Incontinence, Hematuria, Retention, Other. Musculoskeletal Denies: Neck Pain, Shoulder Pain, Arm Pain, Back Pain, Hand Pain, Leg Pain, Foot Pain, Other. Skin Denies: Rash, Lesions, Jaundice, Bruising, Other. Neurological Denies: Weakness, Numbness, Incoordination, Change in speech, Confusion, Seizures, Other. Physical Exam Vital Signs / I&Os Vital Signs Date Time Temp Pulse Resp B/P Pulse O2 O2 Flow FiO2 Ox Delivery Rate 09/02 0730 97.9 92 20 134/90 97 Room Air 09/02 0223 97.7 66 18 117/75 99 Room Air 09/01 2301 98.1 68 18 116/79 99 Room Air 09/01 1951 Room Air 09/01 1825 99.0 91 18 113/82 99 Room Air 09/01 1617 98.2 87 18 126/90 100 Room Air I&O 09/01 0800 09/01 1600 09/02 0000 Intake Total 720 Output Total 600 Balance 120 General Appearance Alert, Oriented X3, No acute distress HEENT Atraumatic, Moist mucous membranes Lungs Clear to auscultation Neck Supple, No masses Cardiovascular Normal S1 and S2, No murmurs, gallops, rubs Abdomen Soft, - tenderness to lower quadrants, more so on the left Extremities No edema, Normal pulses, No tenderness, Strength = upper ext's, Strength = lower ext's Skin No Breakdown Neurological Normal speech, Normal tone, Cranial nerves intact Psych/Mental Status Mood normal LAB Results Laboratory Tests 09/01 09/01 09/02 09/02 09/02 1040 1040 0255 0525 0910 Chemistry Plasma Sodium (136 - 145 mmol/L) 139 140 Plasma Potassium (3.5 - 5.1 mmol/L) 3.8 3.3 Plasma Chloride (98 - 107 mmol/L) 103 108 CO2 (Enzymatic) (21 - 32 mmol/L) 20 22 BUN (7 - 18 mg/dL) 7 5 Creatinine (0.6 - 1.3 mg/dL) 0.9 0.6 Est GFR ( Amer) (mL/min) >60 >60 Est GFR (Non-Af Amer) (mL/min) >60 >60 Glucose (70 - 110 mg/dL) 201 94 Plasma Calcium (8.5 - 10.1 mg/dL) 8.5 7.3 Plasma Magnesium (1.8 - 2.4 mg/dL) 1.8 Total Bilirubin (0.0 - 1.0 mg/dL) 1.2 0.8 AST (15 - 37 U/L) 45 23 ALT (12 - 78 U/L) 61 35 Alkaline Phosphatase (46 - 116 U/L) 57 39 Creatine Kinase (24 - 260 U/L) 79 Troponin (0.00 - 1.5 ng/mL) <0.05 Total Protein (6.4 - 8.2 g/dL) 7.2 5.1 Albumin (3.3 - 5.0 g/dL) 4.3 3.0 Coagulation INR (0.8 - 1.2) 1.2 APTT (24 - 34 SECONDS) 32 Hematology WBC (4.5 - 11.5 K/uL) 8.9 6.8 RBC (4.50 - 5.90 M/uL) 4.12 2.86 Hgb (13.5 - 17.5 gm/dL) 13.2 9.5 8.9 Hct (41.0 - 53.0 %) 39.7 27.6 27.0 MCV (80 - 100 fL) 96 96 MCH (26 - 34 pg) 32 33 RDW (11.6 - 14.8 %) 14.2 13.7 Neut % (Auto) (50 - 75 %) 78.9 57.9 Lymph % (Auto) (25 - 40 %) 15.8 32.5 [place] % (Auto) (3 - 14 %) 4.5 7.7 Eos % (Auto) (0 - 4 %) 0.5 1.3 Baso % (Auto) (0 - 2 %) 0.3 0.6 Plt Count, EDTA (150 - 400 K/uL) 305 215 PUBS MCHC (31 - 37 g/dL) 33 34 Assessment and Plan Problem List 1. Lower GI bleeding Plan - pt has been having frequent bleeding after polypectomy during colonoscopy - pt was seen to have frequent bleeding episodes however they are dminishing in amount gradually - pt seen to have a hemoglobin of 13 - will repeat cbc if pt has repeat bleeding episode 2. S/P colonoscopy with polypectomy Plan - will repeat colonoscopy tomorrow 3. Atrial septal defect Plan - will resume anticoagulation once patient is free from bleeding - will continually monitor on telemetry for the time being - daily inrs once ac is reinstated
--- NOTE | 2016-09-01 21:43 | NUR ---
THIRD DAY SINCE PT'S LAST DRINK, NORMALLY DRINKS 4-5 HARD LIQUOR PER DAY. WILL MONITOR CLOSELY FOR ETOH WITHDRAWAL.
[2016-09-01 23:01] VITALS: BP 116/79
[2016-09-02] VITALS (10 sets, daily range): BP systolic 110–134; BP diastolic 63–92
--- NOTE | 2016-09-02 05:10 | NUR ---
PT HAD BM AT 0230, LARGE AMOUNT OF BLOOD IN TOILET WITH BM. ORDERED CBC TO BE TAKEN EARLY TO CHECK H & H. RESULTS WERE 9.5 & 27.6 COMPARED TO 13.2 & 39.7 TAKEN AT 1040 YESTERDAY. PT VSS, HR RATE IN 70s WHEN RESTING IN BED AND BP 117/75. DR. TONG NOTIFIED OF DROP IN H & H, HE ORDERED LAB DRAW Q6H X 4, NO FURTHER ORDERS, DECLINED TO GIVE BLOOD AT THIS TIME. WCTM.
--- NOTE | 2016-09-02 05:41 | NUR ---
PT'S HR LISE TO 140s WITH AMBULATION TO BR, BUT PT HAS NO COMPLAINTS OF PALPITATIONS. ALSO NO COMPLAINTS OF PAIN, TENDERNESS OR NAUSEA. TOLERATED CLEAR LIQUIDS WELL.
--- NOTE | 2016-09-02 11:20 | NUR ---
NOTIFIED DR. HUERTA OF 0900 H&H LOWER AND PATIENT REPORTS DIZZINESS. FINAL SALINE FLEETS ENEMA GIVEN AT 1110. WCTM
--- NOTE | 2016-09-02 11:59 | NUR ---
pt interviewed in [facility], confirms procedure, allergy to cortisone and pollens, was not able to hold the enemas for the specified time and wanted us to know this.
--- NOTE | 2016-09-02 12:41 | NUR ---
PT TO PACU ON L SIDE, REPORT TO LEX, GLASSES TO PACU WITH PT.
--- NOTE | 2016-09-02 12:42 | NUR ---
PATIENT ARRIVED TO PACU AT 1236. SPONT RESP. SLEEPING. PATIENT HYPOTENSIVE. PULSE, RESPIRATIONS AND O2 SAT WNL. ANESTHESIA AWARE OF HYPOTENSION. WILL CONTINUE TO MONITOR.
--- NOTE | 2016-09-02 13:17 | NUR ---
PT. RETURNED FROM PACU, VSS, DENIES DIZZINESS OR SOB. IVFLUID HOOKED BACK UP, REC'D A FULL BAG OF NS FROM PACU. IV SITES STILL PATENT AND FLUSH WELL WCTM
--- NOTE | 2016-09-02 13:41 | OPERATIVE REPORT ---
DATE OF SURGERY: 09/02/2016 SURGEON: Kyra Carbone III, MD [employer] OPERATOR: None. PREOPERATIVE DIAGNOSIS: 1. Bright red blood per rectum POSTOPERATIVE DIAGNOSES: 1. Possible sigmoid colitis 2. No active bleeding PROCEDURE PERFORMED: 1. Colonoscopy ANESTHESIA: TIVA. INDICATIONS: The patient is a 50-year-old male who, the day prior, had undergone colonoscopy for a history of bright red blood per rectum. At colonoscopy, he had a pedunculated polyp removed using electrocautery snare without incident. The patient went home, started passing bright red blood and diarrhea stools. He was evaluated in the emergency department. He was admitted for observation. He continued to have bright red blood per rectum. His hematocrit dropped to 25 by the following morning, and he was scheduled for colonoscopy. SURGICAL FINDINGS: At colonoscopy, no gross evidence of ongoing bleeding. It appeared that he may have had brown, maybe bloody stool coating the cecum, but no active bleeding noted. The remaining ascending, transverse, descending colon appeared grossly normal. The sigmoid colon perhaps had a site of colitis. No active bleeding noted. Previous polypectomy site was identified. No active bleeding noted. The remaining rectal vault appeared grossly normal as well. SURGICAL TECHNIQUE: The patient was brought to the operating room and placed in the left lateral decubitus position, where he was administered TIVA and monitored closely by anesthesia. After proper anesthesia had taken effect, a digital rectal examination revealed no masses or stenosis. This was followed by the passage of a fiberoptic video flexible Olympus colonoscope which, without difficulty, negotiated to the cecum. The cecum had thin coating of brownish, perhaps blood stool. This was irrigated. The tyler of the cecum appeared grossly normal. The remaining ascending, transverse, descending colon appeared grossly normal. There was perhaps one little area of the colon that may have had little aphthous-type ulcerations, which could represent colitis, but again no bleeding in this site noted. The previous polypectomy site was identified, and again no active bleeding noted. The scope was withdrawn, retroflexed, good view of the rectal vault obtained, and no other bleeding or pathology noted. The scope was completely withdrawn. The patient tolerated the procedure well and was transferred to the recovery room in stable condition. There were no intraoperative or anesthetic complications.
--- NOTE | 2016-09-02 14:44 | NUR ---
called to lab on hemoccult test, results were positive, notified dr. montenegro
--- NOTE | 2016-09-02 15:39 | NUR ---
NUTRITION NOTE: Pt admitted with dx/o anemia, lower GIB and s/p colonoscopy with polypectomy. Pt on general diet and appears to be tolerating. RD to follow up with complete assessment per protocol.
--- NOTE | 2016-09-02 17:21 | NUR ---
PATIENT IS ALERT AND ORIENTED. HAS BEEN AMBULATNG. LUNG SOUNDS CLEAR. VSS. HAS BEEN WEARING SCDS WHILE IN BED FOR DVT PREVENTION. WAS PASSED OFF IN REPORT DR IS AWARE OF [facility] LAB VALUES. PATIENT RESTING NOW.
--- NOTE | 2016-09-02 18:06 | NUR ---
TOLD DR HUERTA ABOUT PATIETNS MOST RECENT LAB VALUES ADN HIS H/H LAB VALUES THAT WERE JUST TAKEN RECENTLY.
--- NOTE | 2016-09-02 18:42 | Progress Note ---
Subjective General Patient seen and examined. Patient had a one episode of bleeing overnight with a resulting drop in his hemoglobin., Patient otherwise has been hemodynamically stable and will go for colonoscopy today. Constitutional Denies: Fever, Chills, Sweats, Weakness, Malaise, Other. Eyes Denies: Pain, Vision Change, Conjunctival Inflammation, Eyelid Inflammation, Redness, Other. Respiratory Denies: Cough, Dry, SOB w/exertion, Wheezing, Hemoptysis, Pleuritic Pain, Sputum , Other. Cardiovascular Denies: Chest Pain, Palpitations, Orthopnea, PND, Edema, Light-headedness, Other. Gastrointestinal Abdominal Pain, Melena. Denies: Nausea, Vomiting, Diarrhea, Constipation, Hematochezia, Other. Genitourinary Denies: Dysuria, Frequency, Incontinence, Hematuria, Retention, Other. Musculoskeletal Denies: Neck Pain, Shoulder Pain, Arm Pain, Back Pain, Hand Pain, Leg Pain, Foot Pain, Other. Skin Denies: Rash, Lesions, Jaundice, Bruising, Other. Neurological Denies: Weakness, Numbness, Incoordination, Change in speech, Confusion, Seizures, Other. Physical Exam Vital Signs / I&Os Vital Signs Date Time Temp Pulse Resp B/P Pulse O2 O2 Flow FiO2 Ox Delivery Rate 09/02 1504 78 20 132/83 100 09/02 1421 75 20 128/84 100 09/02 1407 98.4 76 20 130/92 100 Nasal Cannula 09/02 1332 74 16 122/85 100 Nasal 0.0 Cannula 09/02 1315 97.5 64 16 110/74 100 Nasal 0.0 Cannula 09/02 1255 97.3 78 14 111/75 100 09/02 1250 69 17 118/65 100 09/02 1245 79 20 90/54 100 09/02 1240 82 19 84/47 100 09/02 1236 97.7 71 16 83/48 100 Nasal Cannula 09/02 1108 98.1 81 18 131/88 100 Room Air 09/02 0855 Room Air 09/02 0730 97.9 92 20 134/90 97 Room Air 09/02 0223 97.7 66 18 117/75 99 Room Air 09/01 2301 98.1 68 18 116/79 99 Room Air 09/01 1951 Room Air I&O 09/01 0800 09/01 1600 09/02 0000 Intake Total 720 Output Total 600 Balance 120 General Appearance Alert, Oriented X3, No acute distress HEENT Atraumatic, Moist mucous membranes Lungs Clear to auscultation, Normal air movement Neck No JVD, No masses, No thyromegaly, No lymphadenopathy, 2+ carotid pulse wo bruit Cardiovascular Regular rate and rhythm, Normal S1 and S2, No murmurs, gallops, rubs Abdomen Soft, No tenderness, No guarding, No rebound, - tenderness to Lower quadrants left dominant Extremities No edema, Normal pulses, No tenderness, Strength = upper ext's, Strength = lower ext's Skin No Rashes, No Breakdown, No Significant Lesions Neurological Normal speech, Normal tone, Sensation intact, Cranial nerves intact , Strength 5/5 x4 ext's Psych/Mental Status Mental status normal LAB Results Laboratory Tests 09/02 09/02 09/02 09/02 09/02 0255 0525 0910 1250 1528 Chemistry Plasma Sodium (136 - 145 mmol/L) 140 Plasma Potassium (3.5 - 5.1 mmol/L) 3.3 Plasma Chloride (98 - 107 mmol/L) 108 CO2 (Enzymatic) (21 - 32 mmol/L) 22 BUN (7 - 18 mg/dL) 5 Creatinine (0.6 - 1.3 mg/dL) 0.6 Est GFR ( Amer) (mL/min) >60 Est GFR (Non-Af Amer) (mL/min) >60 Glucose (70 - 110 mg/dL) 94 Plasma Calcium (8.5 - 10.1 mg/dL) 7.3 Plasma Magnesium (1.8 - 2.4 mg/dL) 1.8 Total Bilirubin (0.0 - 1.0 mg/dL) 0.8 AST (15 - 37 U/L) 23 ALT (12 - 78 U/L) 35 Alkaline Phosphatase (46 - 116 U/L) 39 Total Protein (6.4 - 8.2 g/dL) 5.1 Albumin (3.3 - 5.0 g/dL) 3.0 Hematology WBC (4.5 - 11.5 K/uL) 6.8 RBC (4.50 - 5.90 M/uL) 2.86 Hgb (13.5 - 17.5 gm/dL) 9.5 8.9 9.3 Hct (41.0 - 53.0 %) 27.6 27.0 26.9 MCV (80 - 100 fL) 96 MCH (26 - 34 pg) 33 RDW (11.6 - 14.8 %) 13.7 Neut % (Auto) (50 - 75 %) 57.9 Lymph % (Auto) (25 - 40 %) 32.5 [place] % (Auto) (3 - 14 %) 7.7 Eos % (Auto) (0 - 4 %) 1.3 Baso % (Auto) (0 - 2 %) 0.6 Plt Count, EDTA (150 - 400 K/uL) 215 PUBS MCHC (31 - 37 g/dL) 34 Other Body Source Stool Occult Blood Pending Stl Occult Blood (ICT) (NEGATIVE) POSITIVE Occult Blood (ICT) #2 (NEGATIVE) Pending Occult Blood (ICT) #3 (NEGATIVE) Pending Assessment and Plan Problem List 1. Lower GI bleeding Plan - pt has been having lower gi bleed after polypectomy on a colonoscopy 2 days ago - pt had one episode of bleeding overnight - pt had colonoscopy today which did not reveal any active bleeding - will continue to monitor cbc q6 and if stable will move to q12 - will monitor for blood loss 2. Anemia Plan - will continue to monitor cbc q6 until steady state is reached - anemia secondary to acute blood loss 3. Atrial septal defect Plan - pt has an established history of atiral septal defect for which he has been on coumadin - will resume anticoagulation once bleeding has resolved
--- NOTE | 2016-09-02 19:46 | NUR ---
I discussed with the patient their current medications, possible side effects, and answered questions.
--- NOTE | 2016-09-02 20:31 | NUR ---
PATIENT IS ALERT AND ORIENTED. NO C/O PAIN CURRENTLY/ NO C/O N/V OR SOB. HAS BEEN AMBULATING TO AND FROM BATHROOM NEEDED. IS WEARING SCDS FOR DVT PREVENTION. WAS PASSED OFF IN REPORT DR IS AWARE OF CURRENT LAB VALUES. ALSO CALLED DR HUERTA EARLIER TO INFORM HIM OF PATIETNS CURRENT H/H LAB VALUES.
--- NOTE | 2016-09-02 21:39 | NUR ---
JUST CALLED DR TONG TO INFORM HIM OF PATIENTS CURRENT LAB VALUES. HIS H/H WERE LOW.
--- NOTE | 2016-09-02 21:55 | NUR ---
DUE FOR IV TUBING CHANGE TOMORROW.
[2016-09-03 03:04] VITALS: BP 119/77
--- NOTE | 2016-09-03 05:44 | NUR ---
PT STATED THAT HE DID NOT SLEEP WELL DURING THE SHIFT. VSS AND NO COMPLAINTS OF PAIN OR N/V. HR DID NO GO TACHY WITH AMBULATION. NO BM DURING THIS SHIFT.
[2016-09-03 07:01] VITALS: BP 114/70
--- NOTE | 2016-09-03 07:39 | Progress Note ---
Subjective General Note Date: September 03, 2016 Admission Date: September 01, 2016 Hospital Day: 3 PCP: Fletcher Sims M.D. Status: Observation Advanced Directive: Full Code Room: 211 Brief History: The patient is a 50-year-old white male with a significant past medical history of cerebrovascular disease status post CVA, atrial septal defect, hepatitis B, chronic anticoagulation, alcohol abuse, who presented to [facility] emergency department on the day of admission secondary to complaints of rectal bleeding. [facility] ER evaluation was consistent with lower GI bleeding. Secondary to the above the patient was admitted by Braulio Terrell M.D. for further evaluation and treatment. For other history present illness, past medical history, family history, social history, review of systems, and admission physical examination please see the patient's history and physical examination and ER visit note in the patient's medical record. Subjective: The patient states she is doing well today. Denies bloody diarrhea. No abdominal pain. States ready for discharge. Patient requests: None Medications and Allergies Medications Current Medications Sig/Nafisa Start time Last Medication Dose Route Stop Time Status Admin Acetaminophen 650 MG Q6H PRN 09/01 1800 AC PO Sodium Chloride 1,000 ML ASDIRECTED 09/01 1745 AC 09/03 IV 0435 Allergies Coded Allergies: Cortisone (Severe, childhood..after injection, eye swelling 08/31/16) Lactose Intolerance (GI) (09/02/16) Physical Exam Vital Signs / I&Os Vital Signs Date Time Temp Pulse Resp B/P Pulse O2 O2 Flow FiO2 Ox Delivery Rate 09/03 0701 97.2 71 18 114/70 100 Room Air 0.0 09/03 0304 98.2 66 18 119/77 100 Room Air 09/03 0022 Room Air 09/02 2231 98.4 66 17 111/63 98 Nasal Cannula 09/02 1836 98.1 75 20 129/80 96 09/02 1504 78 20 132/83 100 09/02 1421 75 20 128/84 100 09/02 1407 98.4 76 20 130/92 100 Nasal Cannula 09/02 1332 74 16 122/85 100 Nasal 0.0 Cannula 09/02 1315 97.5 64 16 110/74 100 Nasal 0.0 Cannula 09/02 1255 97.3 78 14 111/75 100 09/02 1250 69 17 118/65 100 09/02 1245 79 20 90/54 100 09/02 1240 82 19 84/47 100 09/02 1236 97.7 71 16 83/48 100 Nasal Cannula 09/02 1108 98.1 81 18 131/88 100 Room Air 09/02 0855 Room Air I&O 09/03 0000 09/02 1600 09/02 0800 Intake Total 990 1039 1920 Output Total 1800 2000 1200 Balance -810 -961 720 General Appearance Alert, Oriented X3, Cooperative, No acute distress Lungs Clear to auscultation, Normal air movement Cardiovascular Regular rate and rhythm, Normal S1 and S2 Abdomen Normal bowel sounds, Soft, No tenderness, No guarding Extremities No cyanosis, No clubbing Neurological Cranial nerves intact, No lateralizing signs Psych/Mental Status Mental status normal, Mood normal LAB Results Laboratory Tests 09/03 09/02 09/02 09/02 09/02 0300 2100 2100 1528 1250 Hematology WBC (4.5 - 11.5 K/uL) 5.7 RBC (4.50 - 5.90 M/uL) 2.58 Hgb (13.5 - 17.5 gm/dL) 8.3 8.4 8.3 9.3 Hct (41.0 - 53.0 %) 25.3 24.4 25.1 26.9 MCV (80 - 100 fL) 97 MCH (26 - 34 pg) 32 RDW (11.6 - 14.8 %) 13.9 Neut % (Auto) (50 - 75 %) 59 Lymph % (Auto) (25 - 40 %) 33 [place] % (Auto) (3 - 14 %) 5 Eos % (Auto) (0 - 4 %) 1 Baso % (Auto) (0 - 2 %) 0 Band Neutrophils % (0 - 8 %) 2 Metamyelocytes % (0 - 1 %) 0 Myelocytes (0 - 1 %) 0 Other Cell Type 0 Plt Count, EDTA (150 - 400 K/uL) 201 Hypochromic-Microcytic 1+ PUBS MCHC (31 - 37 g/dL) 33 Other Body Source Stool Occult Blood Pending Stl Occult Blood (ICT) (NEGATIVE) POSITIVE Occult Blood (ICT) #2 (NEGATIVE) Pending Occult Blood (ICT) #3 (NEGATIVE) Pending 09/02 0910 Hematology Hgb (13.5 - 17.5 gm/dL) 8.9 Hct (41.0 - 53.0 %) 27.0 Assessment and Plan Problem List 1. Lower GI bleeding Plan -Patient presented with findings suggestive of lower GI bleeding. -Patient underwent colonoscopy which showed no evidence of bleeding -Dr. Carbone recommended upper GI with small bowel follow-through post discharge , this was scheduled prior to discharge -Follow up with Dr. Sims next week for reevaluation 2. Anemia Plan -Patient with mild anemia. -No evidence of ongoing bleeding. -We'll continue anticoagulation with close observation on outpatient basis by Dr. Sims -Patient to follow-up with Dr. Sims next week for repeat CBC, INR -H&H stable/improved. -Discharge H&H 8.3/25.3. 3. Atrial septal defect Plan -Patient with history of atrial septal defect -Recommended follow-up with cardiology with consideration of closure of ASD especially in setting of previous CVA -Recommended patient follow-up with Dr. Sims for scheduling of cardiology consultation -Continue anticoagulation in setting of previous CVA 4. Chronic anticoagulation Status Chronic Onset Date Unknown Plan -See above -Continue Coumadin -Patient to be observed closely for any evidence of ongoing GI bleeding -Patient to have follow-up CBC next week and INR in 3 days Current status: Fair, stable Anticipated discharge date: Today Anticipated discharge placement: Home Patient care time: Time spent in chart review, patient interview, physical exam, CPOE, and care documentation: Greater than 30 minutes Visit to patient today: 1 Complexity of care: Moderate For other recommendations regarding discharge diet, activity, followup, and discharge medications please see the patient's discharge instructions. Greater than 30 min. was spent in the patient's discharge preparation including discharge interview and physical examination, progress note, discharge instructions, and discharge summary E&M Codes Discharge: Observation - All/[id number]
[2016-09-03 09:56] VITALS: BP 139/95
--- NOTE | 2016-09-03 11:04 | Provider's Discharge Care Plan ---
Problem, Goal, Plan Problem List 1. Lower GI bleeding Goals: Improve disease control, Prevent disease progress Instructions: Follow up as directed, Take meds as directed 2. Chronic anticoagulation Goals: Improve disease control, Prevent disease progress Instructions: Follow up as directed, Take meds as directed, Follow-up in 3 days for INR at your family physician's office as follow-up on Coumadin therapy. 3. Anemia Goals: Improve disease control, Prevent disease progress Instructions: Follow up as directed, Take meds as directed, Have your family physician recheck your blood count (CBC) in 1 week
--- NOTE | 2016-09-03 11:08 | Discharge Summary ---
Discharge Summary Report Admit Date 09/01/16 Discharge Date 09/03/16 Admission Diagnosis 1. Lower GI bleed 2. Anemia 3. Chronic anticoagulation 4. Atrial septal defect Discharge Diagnosis 1. Lower GI bleed 2. Anemia 3. Chronic anticoagulation 4. Atrial septal defect Brief History The patient is a 50-year-old white male with a significant past medical history of cerebrovascular disease status post CVA, atrial septal defect, hepatitis B, chronic anticoagulation, alcohol abuse, who presented to [facility] emergency department on the day of admission secondary to complaints of rectal bleeding. [facility] ER evaluation was consistent with lower GI bleeding. Secondary to the above the patient was admitted by Braulio Terrell M.D. for further evaluation and treatment. For other history present illness, past medical history, family history, social history, review of systems, and admission physical examination please see the patient's history and physical examination and ER visit note in the patient's medical record. Hospital Course The following problems and their management were noted during the patient's hospitalization: 1. Lower GI bleed The patient presented with findings of bright red blood per rectum. This was felt secondary to lower GI bleed. Colonoscopy revealed no bleeding source. The patient had stable H&H on discharge. He was placed back on Coumadin secondary to high risk state of atrial septal defect with previous embolic stroke. The patient will follow-up early next week for repeat CBC and INR. Close follow-up by Dr. Sims recommended. The patient will undergo upper GI with small bowel follow-through next week with results reported to Dr. Barraza. 2. Anemia The patient had findings of mild anemia felt secondary to GI bleeding. This was stable at the time of discharge. H&H was noted to be 8.3/25.3 on discharge. This was stable for 2 days. The patient will follow-up with his PCP next week for reevaluation. 3. Chronic anticoagulation The patient has a history of chronic anticoagulation secondary to previous embolic stroke with associated ASD. I recommend the patient follow-up with cardiology for consideration of ASD closure. I recommend the patient see his PCP Dr. Sims for scheduling of cardiology consultation. 4. Atrial septal defect See above. Lab/Imaging Laboratory Tests 09/03 09/02 09/02 09/02 09/02 0300 2100 2100 1528 1250 Hematology WBC (4.5 - 11.5 K/uL) 5.7 RBC (4.50 - 5.90 M/uL) 2.58 Hgb (13.5 - 17.5 gm/dL) 8.3 8.4 8.3 9.3 Hct (41.0 - 53.0 %) 25.3 24.4 25.1 26.9 MCV (80 - 100 fL) 97 MCH (26 - 34 pg) 32 RDW (11.6 - 14.8 %) 13.9 Neut % (Auto) (50 - 75 %) 59 Lymph % (Auto) (25 - 40 %) 33 [place] % (Auto) (3 - 14 %) 5 Eos % (Auto) (0 - 4 %) 1 Baso % (Auto) (0 - 2 %) 0 Band Neutrophils % (0 - 8 %) 2 Metamyelocytes % (0 - 1 %) 0 Myelocytes (0 - 1 %) 0 Other Cell Type 0 Plt Count, EDTA (150 - 400 K/uL) 201 Hypochromic-Microcytic 1+ PUBS MCHC (31 - 37 g/dL) 33 Other Body Source Stool Occult Blood Pending Stl Occult Blood (ICT) (NEGATIVE) POSITIVE Occult Blood (ICT) #2 (NEGATIVE) Pending Occult Blood (ICT) #3 (NEGATIVE) Pending Discharge Instructions/Meds For other recommendations regarding discharge diet, activity, followup, and discharge medications please see the patient's discharge instructions. Discharge condition: Good, improved Greater than 30 min. was spent in the patient's discharge preparation including discharge interview and physical examination, progress note, discharge instructions, and discharge summary The patient was interviewed and examined on the day of discharge. E&M Codes Discharge: Observation - All/[id number]
--- NOTE | 2016-09-03 12:43 | NUR ---
PT. GIVEN DC PACKET (NO SIGNED RX) AND ALL PERSONAL BELONGINGS. STATES THAT HE HAS NO FURTHER QUESTIONS OR CONCERNS, WILL GO TO DR. HERNANDEZ'S OFFICE FOR F/U APPT AND FOR PT INR DRAWING IN 3 DAYS. AWAITING ARRIVAL OF HIS RIDE.
--- NOTE | 2016-09-03 12:57 | NUR ---
PATIENT ESCORTED OUT BY CELL REPAIRER
== END 2016-09-03 13:00 | disposition home or self-care (01) ==
LOC: ED SRH 10:29 → ACUTE2 SRH 13:31 → TRANS SRH 13:31 → ACUTE2 SRH 13:31
PROVIDERS: Specialist; ADMIT Family Medicine
PROC: 0DJD8ZZ Inspection of Lower Intestinal Tract, Via Natural or Artificial Opening Endoscopic (ICD-10-PCS; principal; 2016-09-02 12:15)
DX: K92.1 Melena (principal); D50.0 Iron deficiency anemia secondary to blood loss (chronic); Z86.010 Personal history of colon polyps; K57.30 Diverticulosis of large intestine without perforation or abscess without bleeding; Q21.1 Atrial septal defect; Z86.73 Personal history of transient ischemic attack (TIA), and cerebral infarction without residual deficits; Z79.01 Long term (current) use of anticoagulants
CPT/HCPCS: 29229; 29230; 29242; 29262; 50004; 60001; 83526; 90001; 90074; 90100; 90155; 90616; 91004; 91162; 91163; 91295; 92610; 92720; 92755; 94001; 94060; 95059; 95061